=== PATIENT | male | born 1950 ===

== ENCOUNTER 2022-03-23 15:23 | Outpatient (REF) | payer OTHER, SELFPAY ==
--- OUTSIDE RECORDS SUMMARY | 2022-03-23 15:25 | XMS_ITS | Clinical Summary ---
:1950 Author Organization [facility] Address [address] [facility] [place] [address] Care Team Providers Name Role Phone Floyd Guzman) Micheal Primary Care Provider Source Comments NOTE: The information displayed by Care Everywhere is extracted from the complete medical record andmay not identify all current or past patient conditions.[facility] Allergies No known active allergies Medications Medication Sig Dispensed Refills Start Date End Date Status Aspirin (ADULT LOW Take 81 mg by 0 Active DOSE ASPIRIN) 81 mg mouth daily Oral TabIndications: MONOCLONAL GAMMOPATHY OF UNDETERMINED SIGNIFICANCE Ketoconazole (NIZORAL) Shampoo 120 mL 3 09/19/20212023 Active 2 % Top affected area ShampooIndications: scalp face ears SEBORRHEIC DERMATITIS body 2 to3 times a week for 4 weeks. Atorvastatin (LIPITOR) Take 1 tablet 100 tablet 3 10/17/2021 0 10/17/2023 Active 20 mg Oral by mouth daily TabIndications: to reduce risk HYPERLIPIDEMIA of heart attacks and strokes Hospital, Clinic, or Other Ordered Dose Route Frequency Start Date End Date Status Facility Administered Medication Propofol IV Premix 600 mg IV CONTINUOUS 08/27/2019 Active (DIPRIVAN)Indications: SCREENING FOR COLON CANCER Propofol IV Premix 200 mg IV CONTINUOUS 11/05/2019 Active (DIPRIVAN)Indications: PREOP EXAM, SCREENING COLONOSCOPY Active Problems Problem Noted Date MONOCLONAL GAMMOPATHY OF UNDETERMINED SIGNIFICANCE ANEMIA 07/22/2018 HX OF BASAL CELL SKIN CANCER 07/02/2018 ADULT OBSTRUCTIVE SLEEP APNEA, SEVERE 02/06/2017 HYPERLIPIDEMIA 11/24/2016 COLONOSCOPY DONE OUTSIDE IN 201011/23/2016 Encounters Date Type Specialty Care Team Description 03/01/2022 Telephone Appointment Sleep Clinic Carly Ramachandran SLEEP Visit - [facility] Marilee APNEA Health/Nurse Visit 02/28/2022 Telephone Sleep Clinic Tanesha Adler 02/06/2022 Telephone Sleep Clinic Johnna Bojorquez OTHER (CPAP) from Last 3 Months Immunizations Name Administration Dates Next Due COVID-19 Moderna, External Administration 12/19/2021, 2020, 10/15/2020 INF (Influenza) unspecified formulation 06/17/2015 INFS 6mos-adult (Flulaval quadrivalent) 07/01/2018 (influenza) INFS pres free 6mos-adult (Fluarix 06/28/2020, 08/27/2019 quadrivalent) INFs 4yrs and over (FLUVIRIN) (Influenza) 11/24/2016 INFs pres free 4yrs-adult (FLUVIRIN) 10/11/2017 (Influenza) INFs pres free 65yrs and over (Fluad 06/15/2021 quadrivalent IIV4) (Influenza) PNUcn13 (PREVNAR 13) (Pneumococcal 11/24/2016 conjugate, 13 valent) PPSV23 (Pneumococcal polysaccharide) 07/01/2018 Tdap (ADACEL) (Tetanus, diphtheria, 11/23/2013 acellular pertussis) ZOS (Herpes zoster recombinant) Shingrix 03/30/2020, 020 Family History Medical History Relation Comments Bladder Cancer Father Diabetes Father Relation Status Comments Father Social History Tobacco Use Types Packs/Day Years Used Date Never Smoker Smokeless Tobacco: Never Used Tobacco Cessation: Counseling Given: No Alcohol Use Standard Drinks/Week Comments Yes 2 (1 standard drink = 0.6 oz pure alcoho l) socially Alcohol Habits Answer Date Recorded How often do you have a drink containing alcohol? Not asked How many drinks containing alcohol do you have on a typical Not asked day when you are drinking? How often do you have six or more drinks on one occasion? No t asked Comment: socially 11/24/2016 Substance Use Types Use/Week Comments No Sex Assigned at Date Recorded Not on file Last Filed Vital Signs Vital Sign Reading Time Taken Comments Blood Pressure 136/69 09/06/2021 10:43 AM PST Pulse 59 09/06/2021 10:43 AM PST Temperature 37.1 ??C (98.8 ??F) 09/06/2021 10:43 AM PST Respiratory Rate 17 03/05/2021 10:31 AM PDT Oxygen Saturation 97% 09/06/2021 10:43 AM PST Inhaled Oxygen Concentration - - Weight 119.2 kg (262 lb 12.6 oz) 09/19/2021 10:33 AM PST Height 185.4 cm (6' 1) 09/19/2021 10:33 AM PST Body Mass Index 34.67 09/19/2021 10:33 AM PST Plan of Treatment Health Maintenance Due Date Last Done Comments IMM COVID-19 VACCINE (5 - Booster 04/20/2022 12/19/2021, , for Moderna series) 11/12/2020, Additional histo ry exists IMM INFLUENZA (6 MO AND OLDER) 05/18/2022 06/15/2021, 06/28, (#1) 08/27/2019, Additional history exists IMM DTAP,TDAP,TD (42 DAYS-120 YRS) 11/24/2023 11/23/2013 (2 - Td or Tdap) IMM PNEUMOCOCCAL (65 YRS AND Completed 07/01/2018, 017 OLDER) Insurance Payer Benefit Plan / Subscriber ID Effective Phone Address T ype Group Dates KFHP 1000 HMOX HMO(E) [id number] 2016-Pres [place] PLAN [id number] / ent [facility] MEDICARE MEDICARE PART A [id number] 2014-Pres [phone] [facility] Medicare Fee ONLY ent [id number] PART A For Service [address] [place] [address] Care Teams Tempering Kiln Tender Relationship Specialty Start Date End Date Floyd Guzman), PCP - General Family Practice 11/17 Micheal [address] [place] [address]
--- OUTSIDE RECORDS SUMMARY | 2022-03-23 15:25 | XMS_ITS | Encounter Summary ---
:1950 Author Organization [facility] Address [address] [address] Care Team Providers Name Role Phone Floyd Guzman) Micheal Primary Care Provider Encounter Details Date Type Department Care Team Description 02/28/2022 Telephone SLEEP LAB Tanesha Adler [address] [facility] [address] [place] [address] [place] [address] Social History Tobacco Use Types Packs/Day Years Used Date Never Smoker Smokeless Tobacco: Never Used Alcohol Use Standard Drinks/Week Comments Yes 2 [...] Assigned at Date Recorded Not on file documented as of this encounter Progress Notes Tanesha Adler - 02/28/2022 11:27 AM PDT Returned patients call left voice mail to call the sleep clinic @[phone] to schedule or reschedule his or her appointment . documented in this encounter Plan of Treatment Not on filedocumented as of this encounter Visit Diagnoses Not on filedocumented in this encounter Care Teams Composition Professor Relationship Specialty Start Date End Date Floyd Guzman), PCP - General Family Practice 11/17 Micheal [address] [place] [address] documented as of this encounter
--- OUTSIDE RECORDS SUMMARY | 2022-03-23 15:25 | XMS_ITS | Encounter Summary ---
:1950 Author Organization [facility] Address [address] [place] [address] Care Team Providers Name Role Phone Floyd Guzman) Micheal Primary Care Provider Reason for Referral Durable Medical Equipment (Finalized) (Routine) - Authorized Specialty Diagnoses / Procedures Referred By Contact Refer red To Contact Diagnoses OBSTRUCTIVE SLEEP APNEA Uri Stewart), [facility], [facility] Procedures CPAP, SELF TITRATING, STANDARD (DME) CONTINUOUS POSITIVE AIRWAY PRESSURE DEVICE CUSHN NASAL MASK INTERFACE REPLACEMENT ONLY EACH NASAL APPLICATION DEVICE POS AIRWAY PRESS HEADGEAR HUMIDIFIER HEATED USED W JELANI Burton [address] POS AIRWAY PRESSURE TUBING POS AIRWAY PRESSURE FILTER REPL WATER CHAMBER, PAP DEV [address] [place] [phone] Fax: Referral ID Status Reason Start Expiration Visits Visits Date Date Requested Authorized [id number] Authorized Continuity of 03/01/2022 03/01/2026 48 48 Care Reason for Visit Reason Comments DME/SUPPLY Outpatient Service (Routine) - Closed Specialty Diagnoses / Procedures Referred By Contact Refer red To Contact Sleep Clinic Diagnoses OBSTRUCTIVE SLEEP APNEA Floyd Guzman *RIVERA Henderson M.D., M.D. FOR REFERRALS ONLY [address] [place] [address] [place] [address] Referral ID Status Reason Start Date Expiration Date Visits V isijody Requested Authorized [id number] Closed Specialty 02/09/2022 02/09/2023 1 1 Services Required Encounter Details Date Type Department Care Team Description 03/01/2022 Telephone SLEEP LAB Carly Ramachandran OBSTRUCTIVE SLEEP Appointment Visit - [address] (Marilee)Marilee APNEA [facility] [place] [address] Visit [phone] [place], [place] [phone] [address] Social History Tobacco Use Types Packs/Day Years [...] documented as of this encounter Progress Notes Carly Ramachandran (Marilee)Marilee - 03/01/2022 9:38 AM PDT Called patient he needs a new cpap ordered documented in this encounter Plan of Treatment Not on filedocumented as of this encounter Visit Diagnoses Diagnosis OBSTRUCTIVE SLEEP APNEA documented in this encounter Care Teams Night Baker Relationship Specialty Start Date End Date Floyd Guzman), PCP - General Family Practice 11/17 Micheal [address] [place] [phone] documented as of this encounter
--- OUTSIDE RECORDS SUMMARY | 2022-03-23 15:25 | XMS_ITS | Encounter Summary ---
:1950 Author Organization [facility] Address [address] [place] [address] Care Team Providers Name Role Phone Floyd Guzman) Micheal Primary Care Provider Reason for Visit Reason Onset Date Comments OTHER 02/06/2022 CPAP Encounter Details Date Type Department Care Team Description 02/06/2022 Telephone SLEEP LAB Johnna Bojorquez OTHER (CPAP) [address] [place] [address] [place] [address] Social History Tobacco Use Types Packs/Day Years [...] documented as of this encounter Progress Notes Johnna Bojorquez - 02/06/2022 3:25 PM PDT Patient: Calvin Bowers : 1950 Calvin Bowers called in to discuss ordering new CPAP, patient's current one is making a metal scraping noise. Asked patient to simply contact his PCP to put in referral for new CPAP since patient's current one is no long under warranty. Patient and/ or guardian verbalized understanding and all questions answered during this encounter. Provided my name and the telephone number for the sleep center: [phone] Electronically signed by: BETZY MENJIVAR. Pol[employer]om[employer] Tech. [facility] 02/06/2022, 3:29 PM. documented in this encounter Plan of Treatment Not on filedocumented as of this encounter Visit Diagnoses Diagnosis ADULT OBSTRUCTIVE SLEEP APNEA - Primary OBSTRUCTIVE SLEEP APNEA, ADULT documented in this encounter Care Teams Independent Sales Representative Relationship Specialty Start Date End Date Floyd Guzman), PCP - General Family Practice 11/17 Micheal [address] [place] [phone] documented as of this encounter
[2022-03-25 11:02] LABS: COVID-19 RT-PCR UVMMC Result Negative (Negative)
== END 2022-03-23 15:24 | disposition home or self-care (01) ==
LOC: LBN 15:23
PROVIDERS: Visit Provider Physician Assistant Medical
DX: Z20.822 Contact with and (suspected) exposure to COVID-19 (principal)
CPT/HCPCS: U0003